=== PATIENT | male | born 1975 | race Caucasian/White ===

== ENCOUNTER 2020-07-20 09:00 | Outpatient (REF) | payer OTHER, SELFPAY ==
[2020-07-20 11:00] LABS: Glucose Urine UA >=1000 MG/DL (NEG); Leukocyte Esterase Urine NEG (NEG); Nitrite Urine NEG (NEG); Urine Blood NEG (NEG); Urine Ketones NEG (NEG); Urine Protein NEG (NEG-TRACE)
[2020-07-20 11:02] LABS: Appearance Urine CLEAR; Color Urine YELLOW
[2020-07-20 11:26] LABS: RBC Urine 0 /HPF (0); WBC Urine 0 /HPF (0-4)
[2020-07-20 11:51] LABS: Alanine Aminotransferase 31 U/L (0-40); Albumin Level 4.8 g/dL (3.5-5.0); Alkaline Phosphatase 112 U/L (39-117); Anion Gap 14 (12-20); Aspartate Amino Transferase 15 U/L (5-37); Bilirubin Total 0.5 mg/dL (0.0-1.0); Blood Urea Nitrogen 15 mg/dL (9-16); Calcium 9.7 mg/dL (8.4-10.2); Carbon Dioxide 25 mmol/L (22-29); Chloride 102 mmol/L (96-108); Cholesterol 217 mg/dL; Estimated Glomerular Filt Rate > 60; Glucose Fasting 123 mg/dL (60-99); HDL Cholesterol 49 mg/dL; LDL Cholesterol Calculated 130 mg/dl; Potassium 4.3 mmol/L (3.3-5.1); Sodium 137 mmol/L (135-145); Total Protein 7.7 g/dL (6.5-8.0); Triglycerides 194 mg/dL
[2020-07-20 12:22] LABS: TSH reflex Free T4 1.69 uIU/mL (0.32-4.0)
[2020-07-20 12:35] LABS: Amphetamine Screen Urine Not Detected (Not Detect); Barbiturates, Urine Not Detected (Not Detect); Benzodiazepines Screen Urine Not Detected (Not Detect); Cannabinoid Screen Urine POSITIVE (Not Detect); Cocaine Screen Urine Not Detected (Not Detect); Opiate Screen Urine Not Detected (Not Detect); Phencyclidine Screen Urine Not Detected (Not Detect)
== END 2020-07-20 09:01 | disposition home or self-care (01) ==
LOC: HO.WFDLDS 09:00
PROVIDERS: Visit Provider Family Medicine
DX: Z00.00 Encounter for general adult medical examination without abnormal findings (principal); G89.29 Other chronic pain
CPT/HCPCS: 80053; 80061; 80307; 81001; 81003; 84443

== ENCOUNTER → 2020-08-26 09:02 | Outpatient (BNVA) | payer OTHER, SELFPAY | PROVIDERS: PCP Family Medicine; Visit Provider Nurse Practitioner Gerontology | DX: E11.40 Type 2 diabetes mellitus with diabetic neuropathy, unspecified (principal); I10 Essential (primary) hypertension; E78.00 Pure hypercholesterolemia, unspecified; E66.09 Other obesity due to excess calories; Z68.32 Body mass index [BMI] 32.0-32.9, adult | CPT/HCPCS: 82947; 99212 ==

== ENCOUNTER → 2020-09-06 14:56 | Outpatient (BNVA) | payer OTHER, SELFPAY | PROVIDERS: PCP Family Medicine; Visit Provider Nurse Practitioner Family | DX: G56.03 Carpal tunnel syndrome, bilateral upper limbs (principal); M79.671 Pain in right foot; M79.672 Pain in left foot; M54.2 Cervicalgia; M47.815 Spondylosis without myelopathy or radiculopathy, thoracolumbar region | CPT/HCPCS: 99202 ==

== ENCOUNTER → 2020-09-08 09:35 | Outpatient (BNVA) | payer OTHER, SELFPAY | PROVIDERS: PCP Family Medicine; Visit Provider Internal Medicine Pulmonary Disease | DX: G47.33 Obstructive sleep apnea (adult) (pediatric) (principal); J45.909 Unspecified asthma, uncomplicated; Z91.09 Other allergy status, other than to drugs and biological substances | CPT/HCPCS: 99202 ==

== ENCOUNTER 2020-09-09 10:47 | Outpatient (REF) | payer OTHER, SELFPAY ==
[2020-09-09 11:15] LABS: MANUAL DIFF FLAG NO
[2020-09-09 11:37] LABS: Basophils Absolute Auto 0.1 X10*3/uL (0.0-0.2); Basophils Percent Auto 0.5 % (0-2); Eosinophils Absolute Auto 0.7 X10*3/uL (0.0-0.4); Eosinophils Percent Auto 6.2 % (0-4); Hemoglobin 15.3 g/dl (14.0-18.0); Imm Gran Abs Auto 0.13 X10*3/uL (0.00-0.03); Imm Gran Pct Auto 1.2 % (0.0-0.4); Lymphocytes Absolute Auto 3.6 X10*3/uL (1.2-4.9); Lymphocytes Percent Auto 32.1 % (20-40); Mean Corpuscular HGB Conc 33.3 g/dl (31.0-36.0); Mean Corpuscular Hemoglobin 33.3 pg (27.0-33.0); Mean Platelet Volume 8.9 fL (9.4-12.4); Monocytes Absolute Auto 1.2 X10*3/uL (0.1-1.2); Monocytes Percent Auto 11.1 % (2-11); Neutrophils Absolute Auto 5.4 X10*3/uL (2.0-8.3); Neutrophils Percent Auto 48.9 % (45-73); Platelet Count 326 X10*3/uL (160-400); Red Cell Distribution Width 12.6 % (11.0-16.0); White Blood Count 11.1 X10*3/uL (4.8-10.8)
== END 2020-09-09 10:48 | disposition home or self-care (01) ==
LOC: HO.RESP 10:47
PROVIDERS: PCP Family Medicine; Visit Provider Internal Medicine Pulmonary Disease
DX: Z91.09 Other allergy status, other than to drugs and biological substances (principal)
CPT/HCPCS: 36415; 85025; 86003

== ENCOUNTER → 2020-09-13 10:16 | Outpatient (BNVA) | payer OTHER, SELFPAY | PROVIDERS: PCP Family Medicine; Visit Provider Dietitian, Registered | DX: E11.40 Type 2 diabetes mellitus with diabetic neuropathy, unspecified (principal) | CPT/HCPCS: 97802 ==

== ENCOUNTER → 2021-01-24 10:48 | Outpatient (BNVA) | payer OTHER, SELFPAY | PROVIDERS: PCP Family Medicine; Referring Provider Family Medicine; Visit Provider Psychiatry & Neurology Neurology | DX: G47.00 Insomnia, unspecified (principal); G47.19 Other hypersomnia; R06.83 Snoring | CPT/HCPCS: 99202 ==

== ENCOUNTER → 2021-02-15 15:13 | Outpatient (REF) | payer OTHER, SELFPAY | LOC: HO.SL 15:13 | PROVIDERS: PCP Family Medicine; Visit Provider Psychiatry & Neurology Neurology | DX: Z13.89 Encounter for screening for other disorder (principal) ==

== ENCOUNTER 2021-07-05 11:49 | Outpatient (REF) | payer OTHER, SELFPAY ==
[2021-07-05 12:55] LABS: Amphetamine Screen Urine Not Detected (Not Detect); Barbiturates, Urine Not Detected (Not Detect); Benzodiazepines Screen Urine Not Detected (Not Detect); Cannabinoid Screen Urine POSITIVE (Not Detect); Cocaine Screen Urine Not Detected (Not Detect); Fentanyl, urine Not Detected (Not Detect); Phencyclidine Screen Urine Not Detected (Not Detect)
[2021-07-06 09:28] LABS: Opiate Screen Urine Not Detected (Not Detect)
== END 2021-07-05 11:50 | disposition home or self-care (01) ==
LOC: HO.LNP 11:49
PROVIDERS: Visit Provider Hospitalist
DX: S06.0X9D Concussion with loss of consciousness of unspecified duration, subsequent encounter (principal)
CPT/HCPCS: 80307

== ENCOUNTER 2022-02-14 15:18 | Outpatient (REF) | payer OTHER, SELFPAY ==
[2022-02-15 13:03] LABS: Influenza A PCR NEGATIVE (Negative); Influenza B PCR NEGATIVE (Negative); Resp Syncy Virus RNA Qual PCR NEGATIVE (Negative); SARS COV2 PCR INHOUSE NEGATIVE (Negative)
== END 2022-02-14 15:19 | disposition home or self-care (01) ==
LOC: HO.LAB 15:18
PROVIDERS: Visit Provider Nurse Practitioner Family
DX: Z20.822 Contact with and (suspected) exposure to COVID-19 (principal); R09.89 Other specified symptoms and signs involving the circulatory and respiratory systems
CPT/HCPCS: 0241U

== ENCOUNTER 2022-11-27 10:39 | Outpatient (AMB) | payer OTHER, SELFPAY ==
[2022-11-27 10:41] VITALS: BP 126/70; PULSE 84; RESP 12; TEMP 36.1; O2SAT 98; BMI 32.4
--- NOTE | 2022-11-27 10:41 | A.OFFPC_ITS ---
Vital Signs 11/27/22 10:41 Height 6 ft 3.5 in Weight 263 lb BMI 32.4 BP 126/70 Blood Pressure Location Lt brachial Position Sitting Respiration 12 Pulse 84 Pulse Source Pulse Oximeter Temp 97 F Temp Source Temporal Artery Scan Pulse Oximetry (%) 98 Oxygen Delivery Method Room Air Intake Visit Reasons: follow up dm Intake Note: Patient states that right big toe has an infection in it and he would like an antibiotic. Patient would also like his trulicity filled as well as the carisprodol. Gas [employer] [place] Required: No Accompanied by: Self / Same As Patient Allergies No Known Allergies Allergy (Verified 11/27/22 10:56) Medication List - Last Reconciled 11/27/22 by José Manuel Terry MD aripiprazole (Abilify) 5 mg PO TID 30 days atorvastatin 20 mg PO BEDTIME blood glucose control, normal (OneTouch Ultra Control solution) As directed blood sugar diagnostic (OneTouch Ultra Blue Test Strip) E11.9, To test blood sugar 3 times a day. 90 days blood sugar diagnostic (FreeStyle Precision [place] Strips) once daily blood sugar diagnostic (FreeStyle Lite Strips) As directed 3 times a day blood-glucose meter ([employer]aside The[employer]Touch Ultra2 Meter kit) DX: E11.9, To test blood sugar 3 times a day. 999 days/Lifetime blood-glucose meter (FreeStyle [place] Lite kit) As directed tests 3X/day carisoprodol 350 mg PO BID PRN 30 days dextromethorphan HBr 20 mg (15 mL) PO TID PRN 5 days docusate sodium 100 mg PO DAILY dulaglutide (Trulicity) 1.5 mg (0.5 mL) subcut Q2W empagliflozin (Jardiance) 25 mg PO DAILY 90 days flash glucose scanning reader (FreeStyle Haley 14 Day [place]) As directed flash glucose sensor (FreeStyle [place]aley 14 Day Sensor kit) 1 ea topical Q2W 84 days fluticasone propion-salmeterol 115-21 mcg/actuation (Advair HFA) 2 puffs PO BID 30 days fluticasone propionate 50 mcg/actuation (Flonase Allergy Relief) 1 spray intranasal Q12H 30 days glipizide 5 mg PO BID hydroxyzine HCl 25 mg PO BEDTIME 30 days lancets ([employer] Delica Lancets) E11.9, To test blood sugar 3 times a day. 90 days lancets (FreeStyle Lancets) As directed 3 X/day lidocaine 5% (Lidoderm) 1 patch topical DAILY 30 days lisinopril 5 mg PO DAILY 30 days loratadine (Allergy Relief (loratadine)) 10 mg PO DAILY metformin 1,000 mg (2 x 500 mg) PO BID 30 days methylphenidate HCl 20 mg PO BID metoprolol succinate ER 25 mg PO DAILY 30 days nicotine (Nicoderm CQ) 1 patch transdermal Q24H 28 days omeprazole 40 mg PO DAILY 90 days pseudoephedrine HCl 60 mg (2 x 30 mg) PO .Q8 PRN 10 days sildenafil (Viagra) 100 mg PO DAILY PRN 30 days zolpidem 10 mg PO BEDTIME 30 days Tobacco use date assessed: 07/11/22 Dental Screening Dental Screen Date: 11/27/22 Did you have a dental visit in the last 12 months?: No Did you have a dental problem in the last 6 months where you did not have access to dental care?: No Was dental information given to patient?: Patient has dentist HPI follow up dm HPI Details 47 y/o male presents to f/u diabetes. Last A1c 07/11/22 7.6%. A1c today 11/27/22 7.2%. He is on Trulicity 1.5mg and Jardiance 25mg daily. Also on glipizide 5mg b.i.d. and metformin 1000mg b.i.d. Pt reports an infection on his big R toe. Pt reports ongoing chronic pain. [facility] Medical History Obesity due to excess calories HLD (hyperlipidemia) Essential hypertension Chronic pain Depression Type 2 diabetes mellitus Hammer toe ADHD (attention deficit hyperactivity disorder) Surgical History History of tonsillectomy [place] teeth extracted Family History Mother No problems noted. Father No problems noted. 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 Cognitive needs: No Hearing needs: Yes Vision needs: Yes Review of Systems Const Denies chills, Denies fatigue, Denies fever(s), Denies headache(s) and Denies weakness ENT Denies dizziness and Denies headache(s) Card Denies dyspnea Resp Denies cough, Denies dyspnea, Denies wheezing and Denies other (shortness of breath) Musc Denies numbness and Denies tingling Neuro Denies dizziness, Denies headache(s), Denies numbness, Denies tingling and Denies weakness Psych Denies anxiety and Denies depression Endo Denies fatigue Aller/Immun Denies wheezing Physical exam (Primary Care) Vital Signs: Last Vital Signs Temp 97 F 11/27/22 10:41 Pulse 84 11/27/22 10:41 Resp 12 11/27/22 10:41 BP 126/70 11/27/22 10:41 Pulse Ox 98 11/27/22 10:41 Oxygen Delivery Method Room Air 11/27/22 10:41 BMI result Body Mass Index 32.4 Tobacco/Smoking Status: Tobacco use Status Tobacco use date assessed 07/11/22 11/27/22 10:41 Patient Tobacco Use Status Current everyday Tobacco 11/27/22 10:41 e-Cigarette/Vaping Use Never Used 11/27/22 10:41 Const General: well developed; No acute distress Nutritional Appearance: well nourished Orientation/consciousness: patient oriented x3 HENMT Head: Yes normocephalic and Yes atraumatic Eyes General: appearance normal, both eyes and all related structures Pupils: Equal, round and reactive pupils present EOM: EOMs intact bilaterally Resp Effort & Inspection: normal respiratory effort Neuro General: patient oriented x3 and gait normal Cranial nerves: Yes Equal, round and reactive pupils present Psych Affect: normal affect Assessment and Plan Assessment & Plan (1) Type 2 diabetes mellitus: Code(s): E11.9 - Type 2 diabetes mellitus without complications Plan: A1c 7.2%; improving control. Still not at goal of less than 7.0%. Continue current medication regimen except increasing glipizide for now. (2) Toe infection: Code(s): L08.9 - Local infection of the skin and subcutaneous tissue, unspecified Plan: Right great toe infection Check x-ray Start cephalexin (3) Environmental allergies: Code(s): Z91.09 - Other allergy status, other than to drugs and biological substances Plan: Can try cetirizine and Pataday (4) Chronic pain: Code(s): G89.29 - Other chronic pain Plan: Ongoing chronic low back pain with radiation into buttocks and difficulty with walking. Referred to a new pain management specialty. He is indefinitely suspended from [facility] [place] [facility]. Will temporarily increase his gabapentin Will give him carisoprodol Referred to [facility] [place] pain management He will get paperwork for handicap kylee and I will fill this out (5) Hypersomnolence: Code(s): G47.10 - Hypersomnia, unspecified Plan: Poor sleep and daytime sleepiness. Referred to sleep medicine Orders: Orders XR foot LT min 3V Today L08.9 - Local infection of the skin and subcutaneous tissue, unspecified Referrals Pain Management Referral M54.9 - Dorsalgia, unspecified Sleep Medicine Referral G47.30 - Sleep apnea, unspecified Medications: New gabapentin 300 mg PO BID 14 days 28 caps 0RF carisoprodol 350 mg PO BID 30 days PRN 60 tabs 0RF muscle pain M54.9 - Dorsalgia, unspecified, M62.838 - Other muscle spasm cetirizine (All Day Allergy (cetirizine)) 10 mg PO DAILY 30 days PRN 30 tabs 0RF allergy symptoms olopatadine 0.2% (Pataday Once Daily Relief) 1 drp ophthalmic (eye) QAM 90 days 2.5 mL 0RF cephalexin 500 mg PO Q12H 10 days 20 caps 0RF L08.9 - Local infection of the skin and subcutaneous tissue, unspecified Changed From glipizide 5 mg PO BID 60 tabs 5RF To glipizide 10 mg (2 x 5 mg) PO BID 60 tabs 5RF Refilled flash glucose sensor (FreeStyle Haley 14 Day Sensor kit) 1 ea topical Q2W 84 days 6 ea 3RF E11.40 - Type 2 diabetes mellitus with diabetic neuropathy, unspecified dulaglutide (Trulicity) 1.5 mg (0.5 mL) subcut Q2W 2 mL 1RF E11.21 - Type 2 diabetes mellitus with diabetic nephropathy Coding Level of Care Code Est Pt Level 4 (05585) Diagnoses Type 2 diabetes mellitus E11.9 Toe infection L08.9 Environmental allergies Z91.09 Chronic pain G89.29 Hypersomnolence G47.10
== END 2022-11-27 11:57 | disposition home or self-care (01) ==
PROVIDERS: PCP Family Medicine; Visit Provider Family Medicine
DX: E11.9 Type 2 diabetes mellitus without complications (principal); L08.9 Local infection of the skin and subcutaneous tissue, unspecified; Z91.09 Other allergy status, other than to drugs and biological substances; G89.29 Other chronic pain; G47.10 Hypersomnia, unspecified
CPT/HCPCS: 99214

== ENCOUNTER 2023-03-08 08:32 | Outpatient (AMB) | payer OTHER, SELFPAY ==
--- NOTE | 2023-03-08 08:34 | MHC.OFFWIV ---
Intake Vital Signs 03/08/23 08:42 Height 6 ft 3.5 in Weight 264 lb BMI 32.6 BP 126/70 Blood Pressure Location Rt brachial Position Sitting Pulse 104 H Pulse Source Pulse Oximeter Temp 98.3 F Temp Source Oral Pulse Oximetry (%) 98 Oxygen Delivery Method Room Air Intake Visit Reasons: EP Pain [facility] [phone] Patient Tobacco Use Status: Current everyday Tobacco user Allergies No Known Allergies Allergy (Verified 03/08/23 08:49) Medication List - Last Reconciled 03/08/23 by Silas Lopez MD aripiprazole (Abilify) 5 mg PO TID 30 days atorvastatin 20 mg PO BEDTIME blood glucose control, normal (OneTouch Ultra Control solution) As directed blood sugar diagnostic (OneTouch Ultra Blue Test Strip) E11.9, To test blood sugar 3 times a day. 90 days blood sugar diagnostic (FreeStyle Precision [place] Strips) once daily blood sugar diagnostic (FreeStyle Lite Strips) As directed 3 times a day blood-glucose meter ([employer]uch Ultra2 Meter kit) DX: E11.9, To test blood sugar 3 times a day. 999 days/Lifetime blood-glucose meter (FreeStyle [place] Lite kit) As directed tests 3X/day carisoprodol 350 mg PO BID PRN 30 days cetirizine (All Day Allergy (cetirizine)) 10 mg PO DAILY PRN 30 days dextromethorphan HBr 20 mg (15 mL) PO TID PRN 5 days docusate sodium 100 mg PO DAILY dulaglutide (Trulicity) 1.5 mg (0.5 mL) subcut QWEEK 28 days empagliflozin (Jardiance) 25 mg PO DAILY 90 days flash glucose scanning reader (OpTierStyle Haley 14 Day [place]) As directed flash glucose sensor (FreeStyle Haley 14 Day Sensor kit) 1 ea topical Q2W 84 days fluticasone propion-salmeterol 115-21 mcg/actuation (Advair HFA) 2 puffs PO BID 30 days fluticasone propionate 50 mcg/actuation (Flonase Allergy Relief) 1 spray intranasal Q12H 30 days gabapentin 300 mg PO BID 14 days glipizide 10 mg PO BID 30 days lancets ([employer]Touch Delica Lancets) E11.9, To test blood sugar 3 times a day. 90 days lancets (FreeStyle Lancets) As directed 3 X/day lidocaine 5% (Lidoderm) 1 patch topical DAILY 30 days lisinopril 5 mg PO DAILY 30 days metaxalone 400 mg PO BID PRN 30 days metformin 1,000 mg (2 x 500 mg) PO BID 30 days metoprolol succinate ER 25 mg PO DAILY 30 days nicotine (Nicoderm CQ) 1 patch transdermal Q24H 28 days omeprazole 40 mg PO DAILY 90 days sildenafil (Viagra) 100 mg PO DAILY PRN 30 days HPI EP Pain [facility] [phone] HPI Details 47-year-old male presents to the office for a sick visit. He has 2 complaints. Patient is reporting symptoms of a pinkeye. Symptoms in the left eye. Mucoid discharge in the morning. Increased tearing. Denies history of blurred vision. Also complaining of nonspecific aches and pains in both his shoulders, knees and ankles. Long history of osteoarthritis. Requesting anti-inflammatory. [facility] Medical History Obesity due to excess calories HLD (hyperlipidemia) Essential hypertension Chronic pain Depression Type 2 diabetes mellitus Hammer toe ADHD (attention deficit hyperactivity disorder) Surgical History History of tonsillectomy [place] teeth extracted Family History Mother No problems noted. Father No problems noted. 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 Corneas clear. Anterior chambers clear. General: appearance normal, both eyes and all related structures Neck Neck: Yes normal visual inspection Chest Chest palpation & inspection: normal palpation of entire chest wall Resp Effort & Inspection: normal respiratory effort Neuro General: patient oriented x3 Assessment & Plan Assessment & Plan (1) Conjunctivitis: Code(s): H10.9 - Unspecified conjunctivitis Plan: Erythromycin ointment prescribed. If symptoms do not improve to follow-up here. (2) Osteoarthritis: Code(s): M19.90 - Unspecified osteoarthritis, unspecified site Plan: Meloxicam called in. This is a temporary measure. Further workup to proceed with his primary care and orthopedic provider. Coding Level of Care Code Est Pt Level 3 (94618) Diagnoses Conjunctivitis H10.9 Osteoarthritis M19.90
[2023-03-08 08:42] VITALS: BP 126/70; PULSE 104; TEMP 36.8; O2SAT 98; BMI 32.6
== END 2023-03-08 09:24 | disposition home or self-care (01) ==
PROVIDERS: PCP Family Medicine; Visit Provider Internal Medicine
DX: H10.9 Unspecified conjunctivitis (principal); M19.90 Unspecified osteoarthritis, unspecified site
CPT/HCPCS: 99213

== ENCOUNTER 2023-05-21 14:51 | Outpatient (AMB) | payer OTHER, SELFPAY ==
[2023-05-21 14:54] VITALS: BP 140/82; PULSE 89; O2SAT 97; BMI 35.1
--- NOTE | 2023-05-21 14:54 | A.OFFPC_ITS ---
Vital Signs 05/21/23 14:54 Height 6 ft 3.5 in Weight 285 lb BMI 35.1 BP 140/82 H Pulse 89 Pulse Source Pulse Oximeter Pulse Oximetry (%) 97 Oxygen Delivery Method Room Air Intake Visit Reasons: Med review Intake Note: Patient is here for a med review and left eye swelling, and right hand swelling. Allergies No Known Allergies Allergy (Verified 05/21/23 14:58) Medication List - Last Reconciled 05/21/23 by José Manuel Terry MD aripiprazole (Abilify) 5 mg PO TID 30 days atorvastatin 20 mg PO BEDTIME blood glucose control, normal (OneTouch Ultra Control solution) As directed blood sugar diagnostic (OneTouch Ultra Blue Test Strip) E11.9, To test blood sugar 3 times a day. 90 days blood sugar diagnostic (FreeStyle Precision [place] Strips) once daily blood sugar diagnostic (FreeStyle Lite Strips) As directed 3 times a day blood-glucose meter (OneTouch Ultra2 Meter kit) DX: E11.9, To test blood sugar 3 times a day. 999 days/Lifetime blood-glucose meter (FreeStyle [place] Lite kit) As directed tests 3X/day carisoprodol 350 mg PO BID PRN 30 days cetirizine (All Day Allergy (cetirizine)) 10 mg PO DAILY PRN 30 days dextromethorphan HBr 20 mg (15 mL) PO TID PRN 5 days docusate sodium 100 mg PO DAILY dulaglutide (Trulicity) 1.5 mg (0.5 mL) subcut QWEEK 28 days empagliflozin (Jardiance) 25 mg PO DAILY 90 days flash glucose scanning reader (FreeStyle [place] 14 Day [place]) As directed flash glucose sensor (FreeStyle [place] 14 Day Sensor kit) 1 ea topical Q2W 84 days fluticasone propion-salmeterol 115-21 mcg/actuation (Advair HFA) 2 puffs PO BID 30 days fluticasone propionate 50 mcg/actuation (Flonase Allergy Relief) 1 spray intranasal Q12H 30 days gabapentin 300 mg PO BID 14 days glipizide 10 mg PO BID 30 days lancets (OneTouch Delica Lancets) E11.9, To test blood sugar 3 times a day. 90 days lancets (FreeStyle Lancets) As directed 3 X/day lidocaine 5% (Lidoderm) 1 patch topical DAILY 30 days lisinopril 5 mg PO DAILY 30 days meloxicam 15 mg PO DAILY 7 days metaxalone 400 mg PO BID PRN 30 days metformin 1,000 mg (2 x 500 mg) PO BID 30 days metoprolol succinate ER 25 mg PO DAILY 30 days nicotine (Nicoderm CQ) 1 patch transdermal Q24H 28 days omeprazole 40 mg PO DAILY 90 days sildenafil (Viagra) 100 mg PO DAILY PRN 30 days Tobacco use date assessed: 05/21/23 HPI Med review HPI Details 47 y/o male presents today for a med rev iew. He has complaints of L eye swelling along with R hand swelling. A1c today 05/21/23 is 8.2%. He is on Trulicity, Jardiance, glipizide and metformin. He reports he has not had his diabetes medications in awhile. [facility] Medical History Obesity due to excess calories HLD (hyperlipidemia) Essential hypertension Chronic pain Depression Type 2 diabetes mellitus Hammer toe ADHD (attention deficit hyperactivity disorder) Surgical History History of tonsillectomy [place] teeth extracted Family History Mother No problems noted. Father No problems noted. 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 1. Little interest or pleasure in doing things: not at all 2. Feeling down, depressed, or hopeless: not at all 3. Trouble falling or staying asleep, or sleeping too much: not at all 4. Feeling tired or having little energy: not at all 5. Poor appetite or overeating: not at all 6. Feeling bad about yourself - or that you are a failure or have let yourself or your family down: not at all 7. Trouble concentrating on things, such as reading the newspaper or watching television: not at all 8. Moving or speaking so slowly that other people could have noticed. Or the opposite - being so fidgety or restless that you have been moving around a lot more than usual: not at all 9. Thoughts that you would be better off or of hurting yourself in some way: not at all Total score: 0 Source: Developed by Drs. Zain Clay, María Tate, Fabian Hernandez and colleagues, with an educational varsha from [employer] Thrive Questionnaire Date Thrive assessed: 05/21/23 I am a: Patient What is your living situation today?: I have a steady place to live Within the past 12 months, did the food you bought not last and you didn't have the money to get more?: Never true Within the past 12 months, did you worry whether your food would run out before you got money to buy more?: Never true Do you have trouble paying for medicines?: No Do you have trouble getting transportation to medical appointments?: No Do you have trouble paying your heating and electricity bill?: No Do you have trouble taking care of your child, family member or friend?: No Do you have trouble with day-to-day activities such as bathing, preparing meals, shopping, managing finances, etc.?: No Are you currently unemployed and looking for a job?: No Are you interested in more education?: No THRIVE Score: 0 AUDIT C Alcohol Use Questionnaire (AUDIT-C) 1. How often do you have a drink containing alcohol?: Monthly or less 2. How many drinks containing alcohol do you have on a typical day when you are drinking?: 1 or 2 3. How often do you have six or more drinks on one occasion?: Never Total Score: 1 KO-7 AMB Questionnaire KO-7 Date KO - 7 assessed: 05/21/23 Feeling nervous, anxious, or on edge: 0 = Not at all Not being able to stop or control worryin = Not at all Worrying too much about different things: 0 = Not at all Trouble relaxin = Not at all Being so restless that it is hard to sit still: 0 = Not at all Becoming easily annoyed or irritable: 0 = Not at all Feeling afraid as if something awful might happen: 0 = Not at all Total KO-7 score (0-4 normal; 5-9 mild; 10-14 moderate; 15-21 severe): 0 Source: Developed by Drs. Zain Clay, María Tate, Fabian Hernandez and colleagues, with an educational varsha from [employer] Review of Systems Const Denies chills, Denies fatigue, Denies fever(s), Denies headache(s) and Denies weakness ENT Denies dizziness and Denies headache(s) Card Denies dyspnea Resp Denies cough, Denies dyspnea, Denies wheezing and Denies other (shortness of breath) Musc Denies numbness and Denies tingling Neuro Denies dizziness, Denies headache(s), Denies numbness, Denies tingling and Denies weakness Psych Denies anxiety and Denies depression Endo Denies fatigue Aller/Immun Denies wheezing Physical exam (Primary Care) Vital Signs: Last Vital Signs Pulse 89 05/21/23 14:54 BP 140/82 H 05/21/23 14:54 Pulse Ox 97 05/21/23 14:54 Oxygen Delivery Method Room Air 05/21/23 14:54 BMI result Body Mass Index 35.1 Tobacco/Smoking Status: Tobacco use Status Tobacco use date assessed 05/21/23 05/21/23 14:59 Patient Tobacco Use Status Current everyday Tobacco 05/21/23 14:59 e-Cigarette/Vaping Use Never Used 05/21/23 14:59 PHQ-9: PHQ-9 Score PHQ-9: Total score 0 05/21/23 15:04 Thrive Assessment: Date of Thrive Assessment Date Thrive assessed 05/21/23 05/21/23 15:04 Const General: well developed; No acute distress Nutritional Appearance: well nourished Orientation/consciousness: patient oriented x3 HENMT Head: Yes normocephalic and Yes atraumatic Eyes General: appearance normal, both eyes and all related structures Pupils: Equal, round and reactive pupils present EOM: EOMs intact bilaterally Resp Effort & Inspection: normal respiratory effort Auscultation: clear to auscultation bilaterally Cardio Rate: regular rate Rhythm: regular rhythm Heart sounds: S1 normal heart sound present, S2 normal heart sound present, no gallops, no murmurs and no rubs Neuro General: patient oriented x3 and gait normal Cranial nerves: Yes Equal, round and reactive pupils present Psych Affect: normal affect Results AMB Hemoglobin A1c AMB Hemoglobin A1c 8.2 % Last Edit by Missy Dexter CMA on 05/21/23 15:18 Results Reviewed Results Reviewed: Laboratory Last Values Hgb A1c (Clinic) 8.2 % (4.0-6.0) H 05/21/23 15:13 Assessment and Plan Assessment & Plan (1) Hand swelling: Code(s): M79.89 - Other specified soft tissue disorders Plan: Swelling?at?fingertip?due?to?periungual?infection?and?recent?abscess?which?has? drained. Still?has?some?cellulitis?there Start?antibiotic Warm?soaks Call?or?return?to?office?if?not?improving. (2) Eye swelling: Code(s): H57.89 - Other specified disorders of eye and adnexa Plan: Infected?chalazion Erythromycin?ointment Refer?to?ophthalmology (3) Hand swelling: Code(s): M79.89 - Other specified soft tissue disorders Plan: As?above (4) Chalazion left upper eyelid: Code(s): H00.14 - Chalazion left upper eyelid Plan: As?above (5) Type 2 diabetes mellitus: Code(s): E11.9 - Type 2 diabetes mellitus without complications Plan: Poor?control.??Goal?is?less?than?7.0%?for?A1c Has?not?been?able?to?get?Trulicity-switching?to?Ozempic Continue?other?medications?as?prescribed Follow-up?in?a?month (6) Anxiety: Code(s): F41.9 - Anxiety disorder, unspecified Plan: Patient?lost?provider We?discussed?that?I?will?cover?this?medication?for?2?months?only. Patient?will?need?to?get?a?new?psychiatrist.??He?understands. Orders: Orders AMB Hemoglobin A1c Today Z13.9 - Encounter for screening, unspecified Complete Blood Count Auto Diff Today Z00.00 - Encounter for general adult medical examination without abnormal findings Erythrocyte Sedimentation Rate Today M79.89 - Other specified soft tissue disorders CRP High Sensitivity Today M79.89 - Other specified soft tissue disorders Comprehensive Met. Panel Today M79.89 - Other specified soft tissue disorders Referrals Ophthalmology Referral H00.14 - Chalazion left upper eyelid Nurse Navigator Referral F41.9 - Anxiety disorder, unspecified Medications: New semaglutide (Ozempic) 1 mg (0.75 mL) subcut QWEEK 3 mL 2RF 28 days erythromycin 0.5 inches ophthalmic (eye) TID 3.5 grams 0RF 7 days olopatadine 0.2% 1 drp ophthalmic (eye) QAM 2.5 mL 1RF 30 days diazepam MassPat Verified 2 mg PO BID PRN 60 tabs 0RF anxiety 30 days albuterol sulfate 90 mcg/actuation (ProAir HFA) 2 puffs inhalation Q4-6H PRN 8.5 grams 0RF shortness of breath or wheezing 30 days ciprofloxacin HCl 250 mg PO Q12H 14 tabs 0RF 7 days Changed From sildenafil (Viagra) administer 30 minutes to 4 hours before activity 100 mg PO DAILY PRN 30 tabs 0RF sexual activity 30 days To sildenafil (Viagra) administer 30 minutes to 4 hours before activity 100 mg PO DAILY PRN 90 tabs 2RF sexual activity 90 days Refilled glipizide 10 mg PO BID 60 tabs 5RF 30 days carisoprodol 350 mg PO BID PRN 60 tabs 0RF muscle pain 30 days M54.9 - Dorsalgia, unspecified, M62.838 - Other muscle spasm empagliflozin (Jardiance) 25 mg PO DAILY 90 tabs 1RF 90 days E11.9 - Type 2 diabetes mellitus without complications lisinopril 5 mg PO DAILY 30 tabs 0RF 30 days Discontinued dulaglutide (Trulicity) Discontinued Reason: Doctor's Order 1.5 mg (0.5 mL) subcut QWEEK 28 days 2 mL 2RF E11.21 - Type 2 diabetes mellitus with diabetic nephropathy Coding Level of Care Code Est Pt Level 4 (31966) Diagnoses Hand swelling M79.89 Eye swelling H57.89 Chalazion left upper eyelid H00.14 Type 2 diabetes mellitus E11.9 Anxiety F41.9
== END 2023-05-21 15:54 | disposition home or self-care (01) ==
PROVIDERS: PCP Family Medicine; Visit Provider Family Medicine
DX: M79.89 Other specified soft tissue disorders (principal); H57.89 Other specified disorders of eye and adnexa; H00.14 Chalazion left upper eyelid; E11.9 Type 2 diabetes mellitus without complications; F41.9 Anxiety disorder, unspecified
CPT/HCPCS: 83036; 99214

== ENCOUNTER 2024-03-13 09:12 | Outpatient (AMB) | payer OTHER, SELFPAY ==
--- NOTE | 2024-03-13 09:12 | A.OFFPC_ITS ---
Intake Visit Reasons: medication issues Intake Note: pt is here for med refill, needs all meds refilled [employer] Required: No Accompanied by: Self / Same As Patient Allergies No Known Allergies Allergy (Verified 03/13/24 09:13) Medication List - Last Reconciled 03/13/24 by José Manuel Terry MD albuterol sulfate 90 mcg/actuation 2 puffs inhalation Q4-6H PRN 30 days aripiprazole 2 mg PO TID 30 days atorvastatin 20 mg PO BEDTIME 90 days azithromycin (Zithromax Z-Ciaran) take 500 mg today (day 1), then 250 mg for 4 days (days 2-5) PO 5 days blood glucose control, normal (OneTouch Ultra Control solution) As directed blood sugar diagnostic (OneTouch Ultra Blue Test Strip) E11.9, To test blood sugar 3 times a day. 90 days blood sugar diagnostic (FreeStyle Precision [place] Strips) once daily blood sugar diagnostic (FreeStyle Lite Strips) As directed 3 times a day blood-glucose meter (GeoVarioStyle [place] Lite kit) As directed tests 3X/day blood-glucose meter DX: E11.9, To test blood sugar 3 times a day. 999 days/Lifetime carisoprodol 350 mg PO BID PRN 30 days clotrimazole-betamethasone 1-0.05 % 1 appl topical BID 2 weeks docusate sodium 100 mg PO DAILY dulaglutide 3 mg (0.5 mL) subcut QWEEK 28 days empagliflozin (Jardiance) 25 mg PO DAILY 90 days erythromycin 0.5 inches ophthalmic (eye) TID 7 days fexofenadine (Allergy Relief (fexofenadine)) 180 mg PO DAILY 90 days flash glucose scanning reader (GeoVarioStyle Haley 14 Day [place]) As directed flash glucose sensor (GeoVarioStyle Haley 14 Day Sensor kit) 1 ea topical Q2W 84 days fluticasone propion-salmeterol 115-21 mcg/actuation (Advair HFA) 2 puffs PO BID 30 days fluticasone propionate 50 mcg/actuation (Flonase Allergy Relief) 1 spray intranasal Q12H 30 days gabapentin 300 mg PO BID 30 days glipizide 10 mg PO BID 90 days lancets (GeoVarioStyle Lancets) As directed 3 X/day lancets E11.9, To test blood sugar 3 times a day. 90 days lisinopril 5 mg PO DAILY 90 days metformin 1,000 mg (2 x 500 mg) PO BID 30 days metoprolol succinate ER 25 mg PO DAILY 90 days olopatadine 0.2% 1 drp ophthalmic (eye) QAM 30 days omeprazole 40 mg PO DAILY 90 days sildenafil (Viagra) 100 mg PO DAILY PRN 90 days Tobacco use date assessed: 03/13/24 Dental Screening Dental Screen Date: 03/13/24 Did you have a dental visit in the last 12 months?: Yes Did you have a dental problem in the last 6 months where you did not have access to dental care?: No Was dental information given to patient?: Patient has dentist HPI medication issues HPI Details 48 y/o male [facility]medicine. Hx of diabetes, ADHD. Notes he has gained some weight since last office visit. Pt notes ? ear infection. Also has complaints of a rash. Reports ongoing stye L eye. [facility] Medical History (Updated 03/13/24 @ 15:49 by José Manuel Terry MD) Obesity due to excess calories HLD (hyperlipidemia) Essential hypertension Chronic pain Depression Type 2 diabetes mellitus Hammer toe ADHD (attention deficit hyperactivity disorder) Surgical History (Updated 03/13/24 @ 09:17 by Danish Brock CMA) S/P rotator cuff repair History of tonsillectomy [place] teeth extracted Family History Mother No problems noted. Father No problems noted. 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 1. Little interest or pleasure in doing things: not at all 2. Feeling down, depressed, or hopeless: not at all 3. Trouble falling or staying asleep, or sleeping too much: not at all 4. Feeling tired or having little energy: not at all 5. Poor appetite or overeating: not at all 6. Feeling bad about yourself - or that you are a failure or have let yourself or your family down: not at all 7. Trouble concentrating on things, such as reading the newspaper or watching television: not at all 8. Moving or speaking so slowly that other people could have noticed. Or the opposite - being so fidgety or restless that you have been moving around a lot more than usual: not at all 9. Thoughts that you would be better off or of hurting yourself in some way: not at all Total score: 0 Depression Screening Interpretation: Negative Depression Screening Done: Yes 99326 - PHQ-9 Billing: Yes Source: Developed by Drs. Zain Clay, María Tate, Fabian Hernandez and colleagues, with an educational varsha from [employer]. Thrive Questionnaire Date Thrive assessed: 03/13/24 I am a: Patient What is your living situation today?: I have a steady place to live Within the past 12 months, did the food you bought not last and you didn't have the money to get more?: Never true Within the past 12 months, did you worry whether your food would run out before you got money to buy more?: Never true Do you have trouble paying for medicines?: No Do you have trouble getting transportation to medical appointments?: No Do you have trouble paying your heating and electricity bill?: No Do you have trouble taking care of your child, family member or friend?: No Do you have trouble with day-to-day activities such as bathing, preparing meals, shopping, managing finances, etc.?: No Are you currently unemployed and looking for a job?: No Are you interested in more education?: No THRIVE Score: 0 AUDIT C Alcohol Use Questionnaire (AUDIT-C) 1. How often do you have a drink containing alcohol?: Monthly or less 2. How many drinks containing alcohol do you have on a typical day when you are drinking?: 1 or 2 3. How often do you have six or more drinks on one occasion?: Never Total Score: 1 Score Reviewed/Action Taken: Yes KO-7 AMB Questionnaire KO-7 Date KO - 7 assessed: 03/13/24 Feeling nervous, anxious, or on edge: 0 = Not at all Not being able to stop or control worryin = Not at all Worrying too much about different things: 0 = Not at all Trouble relaxin = Not at all Being so restless that it is hard to sit still: 0 = Not at all Becoming easily annoyed or irritable: 0 = Not at all Feeling afraid as if something awful might happen: 0 = Not at all Total KO-7 score (0-4 normal; 5-9 mild; 10-14 moderate; 15-21 severe): 0 Source: Developed by Drs. Zain Clay, aMría Tate, Fabian Hernandez and colleagues, with an educational varsha from [employer]. KO-7 Assessment Billing KO-7 Assessment Tool: KO-7 Assessment 36094 Review of Systems Const Denies chills, Denies fatigue, Denies fever(s), Denies headache(s) and Denies weakness ENT Denies dizziness and Denies headache(s) Card Denies dyspnea Resp Denies cough, Denies dyspnea, Denies wheezing and Denies other (shortness of breath) Musc Denies numbness and Denies tingling Skin/Breast Reports rash Neuro Denies dizziness, Denies headache(s), Denies numbness, Denies tingling and Denies weakness Psych Denies anxiety and Denies depression Endo Denies fatigue Aller/Immun Denies wheezing Physical exam (Primary Care) Tobacco/Smoking Status: Tobacco use Status Tobacco use date assessed 03/13/24 03/13/24 09:18 Patient Tobacco Use Status Current everyday Tobacco 03/13/24 09:16 e-Cigarette/Vaping Use Never Used 03/13/24 09:16 PHQ-9: PHQ-9 Score PHQ-9: Total score 0 03/13/24 10:29 Depression Screening Interpretation: Negative Thrive Assessment: Date of Thrive Assessment Date Thrive assessed 03/13/24 03/13/24 09:18 Telehealth Telehealth Telehealth Platform: Telephone Location of provider rendering services: practice address Location of patient: address on file Patient Identification confirmed using: Name, : Yes Telehealth method: voice only Patient verbally consented to treatment: Yes Patient verbally consented to billing insurance company: Yes Patient informed of any privacy concerns related to visit: Yes Minutes spent on Phone/Video with Pt.: 28 Coding Level of Care Code Tele Est Pt Level 3 (19669) Diagnoses Type 2 diabetes mellitus E11.9 Rash R21 Stye H00.019 Ear pain H92.09 ADHD (attention deficit hyperactivity disorder) F90.9 Additional Codes KO-7 Assessment Billing - KO-7 Assessment Tool: KO-7 Assessment 86423 ([id number]) PHQ-9 - 10991 - PHQ-9 Billing: Yes ([id number]) Assessment & Plan Assessment & Plan (1) Type 2 diabetes mellitus: Code(s): E11.9 - Type 2 diabetes mellitus without complications Category: Medical Plan: Refilled?medications?for?diabetes Refilled?Haley?and?testing?supplies (2) Rash: Code(s): R21 - Rash and other nonspecific skin eruption Category: Medical Plan: Sending?script?for?clotrimazole-betamethasone?cream Can?also?use?Benadryl?for?itch If?not?improving,?he?will?need?to?come?in?to?evaluate?in?person (3) Stye: Code(s): H00.019 - Hordeolum externum unspecified eye, unspecified eyelid Category: Medical Plan: Will?send?erythromycin (4) Ear pain: Code(s): H92.09 - Otalgia, unspecified ear Category: Medical Plan: Ear?pain?and?feels?blocked. Patient?says?he?thinks?this?is?an?ear?infection. Advised?him?to?use?Debrox?drops If?not?improving?he?can?fill?script?for?Z-Ciaran?but?otherwise?will?leave?unfilled (5) ADHD (attention deficit hyperactivity disorder): Code(s): F90.9 - Attention-deficit hyperactivity disorder, unspecified type Category: Medical Plan: Patient?requests?refill?of?Adderall. He?has?not?had?any?of?this?medication?for?the?last?2?years?and?a?declined?to?s end?it.??Please?see?message?from?12/16/2020?regarding?controlled?substances.??We ?discussed?with?him?that?there?are?few?medications?at?I?would?managed?for?him?th at?are?controlled. He?can?discuss?with?another?provider?he?says?had?given?him?this?medication. Orders: Orders Hemoglobin A1c Today R73.01 - Impaired fasting glucose Lipid Panel Today Z00.00 - Encounter for general adult medical examination without abnormal findings Microalbumin, Random (w Creat) Today I10 - Essential (primary) hypertension TSH reflex Free T4 Today Z00.00 - Encounter for general adult medical examination without abnormal findings Vitamin B12 and Folate Today E53.8 - Deficiency of other specified B group vitamins Drug Screen Urine Today F41.9 - Anxiety disorder, unspecified Benzodiazepine,GC/MS Urine Today F41.9 - Anxiety disorder, unspecified Amphetamine by GC/MS Today Comprehensive [place]. Panel Fast Today Z00.00 - Encounter for general adult medical examination without abnormal findings Complete Blood Count Auto Diff Today Z00.00 - Encounter for general adult medical examination without abnormal findings Prostate Specific Antigen Scr Today Z12.5 - Encounter for screening for malignant neoplasm of prostate UA and rflx microscopic Today Z00.00 - Encounter for general adult medical examination without abnormal findings Vitamin D 25-OH Total Today E55.9 - Vitamin D deficiency, unspecified Opiates GCMS Expanded, Ur Today F41.9 - Anxiety disorder, unspecified Medications: New fexofenadine (Allergy Relief (fexofenadine)) 180 mg PO DAILY 90 days 90 tabs 2RF clotrimazole-betamethasone 1-0.05 % 1 appl topical BID 2 weeks 60 grams 1RF azithromycin (Zithromax Z-Ciaran) take 500 mg today (day 1), then 250 mg for 4 days (days 2-5) PO 5 days 6 tabs 0RF Changed From atorvastatin 20 mg PO BEDTIME 30 tabs 3RF E78.5 - Hyperlipidemia, unspecified To atorvastatin 20 mg PO BEDTIME 90 days 90 tabs 3RF E78.5 - Hyperlipidemia, unspecified From dulaglutide (Trulicity) 1.5 mg (0.5 mL) subcut QWEEK 28 days 2 mL 3RF To dulaglutide 3 mg (0.5 mL) subcut QWEEK 28 days 2 mL 3RF From gabapentin 300 mg PO BID 14 days 28 caps 0RF To gabapentin 300 mg PO BID 30 days 60 caps 2RF From glipizide 10 mg PO BID 30 days 60 tabs 5RF To glipizide 10 mg PO BID 90 days 180 tabs 5RF From metformin PATIENT NEEDS TO SCHEDULE AN APPT FOR ANY FURTHER REFILL!! 1,000 mg (2 x 500 mg) PO BID 30 days 120 tabs 4RF E11.9 - Type 2 diabetes mellitus without complications To metformin 1,000 mg (2 x 500 mg) PO BID 30 days 120 tabs 4RF E11.9 - Type 2 diabetes mellitus without complications From blood-glucose meter ([employer] Ultra2 Meter kit) DX: E11.9, To test blood sugar 3 times a day. 999 days/Lifetime 1 ea 0RF To blood-glucose meter DX: E11.9, To test blood sugar 3 times a day. 999 days/Lifetime 1 ea 0RF From lancets ([employer] Delica Lancets) E11.9, To test blood sugar 3 times a day. 90 days 400 ea 2RF To lancets E11.9, To test blood sugar 3 times a day. 90 days 400 ea 2RF From aripiprazole (Abilify) 5 mg PO TID 30 days 90 tabs 0RF To aripiprazole 2 mg PO TID 30 days 60 tabs 2RF From albuterol sulfate 90 mcg/actuation (ProAir HFA) 2 puffs inhalation Q4-6H 30 days PRN 8.5 grams 0RF shortness of breath or wheezing To albuterol sulfate 90 mcg/actuation 2 puffs inhalation Q4-6H 30 days PRN 8.5 grams 0RF shortness of breath or wheezing Refilled metoprolol succinate ER 25 mg PO DAILY 90 days 90 tabs 2RF omeprazole 40 mg PO DAILY 90 days 90 caps 2RF carisoprodol 350 mg PO BID 30 days PRN 60 tabs 0RF muscle pain M54.9 - Dorsal mariama, unspecified, M62.838 - Other muscle spasm flash glucose sensor (FreeStyle Haley 14 Day Sensor kit) 1 ea topical Q2W 84 days 6 ea 3RF E11.40 - Type 2 diabetes mellitus with diabetic neuropathy, unspecified lisinopril 5 mg PO DAILY 90 days 90 tabs 3RF erythromycin 0.5 inches ophthalmic (eye) TID 7 days 3.5 grams 0RF sildenafil (Viagra) administer 30 minutes to 4 hours before activity 100 mg PO DAILY 90 days PRN 90 tabs 2RF sexual activity flash glucose scanning reader ([employer] Haley 14 Day [place]) As directed 1 ea 11RF E11.40 - Type 2 diabetes mellitus with diabetic neuropathy, unspecified Discontinued erythromycin Discontinued Reason: Doctor's Order 0.5 inches ophthalmic (eye) TID 7 days 3.5 grams 0RF dulaglutide (Trulicity) Discontinued Reason: Doctor's Order 1.5 mg subcut QWEEK 28 days 4 mL 3RF dextromethorphan HBr Discontinued Reason: Doctor's Order 20 mg (15 mL) PO TID 5 days PRN 118 mL 1RF cough metaxalone Discontinued Reason: Doctor's Order 400 mg PO BID 30 days PRN 60 tabs 0RF muscle pain
== END 2024-03-13 16:49 | disposition home or self-care (01) ==
LOC: HO.HMCFM 09:12
PROVIDERS: PCP Family Medicine; Visit Provider Family Medicine
DX: E11.9 Type 2 diabetes mellitus without complications (principal); R21 Rash and other nonspecific skin eruption; F90.9 Attention-deficit hyperactivity disorder, unspecified type; H00.019 Hordeolum externum unspecified eye, unspecified eyelid; H92.09 Otalgia, unspecified ear

== ENCOUNTER → 2024-03-13 09:12 | Outpatient (BNVA) | payer OTHER, SELFPAY | PROVIDERS: PCP Family Medicine; Visit Provider Family Medicine | DX: E11.40 Type 2 diabetes mellitus with diabetic neuropathy, unspecified (principal); R21 Rash and other nonspecific skin eruption; H00.019 Hordeolum externum unspecified eye, unspecified eyelid; H92.09 Otalgia, unspecified ear; F90.9 Attention-deficit hyperactivity disorder, unspecified type; I10 Essential (primary) hypertension; E53.8 Deficiency of other specified B group vitamins; E55.9 Vitamin D deficiency, unspecified | CPT/HCPCS: 96127 ==